=== PATIENT | female | born 1975 | race Caucasian/White ===

== ENCOUNTER 2023-06-26 10:32 | Emergency (ER) | payer OTHER ==
[2023-06-26] MEDS ORDERED: LACTATED RINGERS SOLUTION 1000 ML INFUS.BAG IV ONE (12:00)
[2023-06-26 13:09] LABS: BASO % 1.1 % (0-2.0); HEMATOCRIT 35.1 % (32.4-45.2); HEMOGLOBIN 11.1 GM/dL (10.7-15.3); LYMPH % 29.8 % (8-40); MCH 21.5 pg (25.7-33.7); MCHC 31.6 g/dl (32.0-36.0); MEAN CELL VOLUME 68.2 fl (80-96); MEAN PLT VOLUME 8.6 fl (7.5-11.1); MONO % 5.3 % (3.8-10.2); NEUT % 60.8 % (42.8-82.8); PLATELET COUNT 381 10^3/uL (134-434); RBC 5.14 M/mm3 (3.60-5.2); WHITE BLOOD COUNT 5.7 K/mm3 (4.0-10.0)
[2023-06-26 13:14] LABS: EPI CELLS >36 /uL (0-25.1); HYALINE CASTS 0 /uL (0-3.1); PH,URINE 7.5 (5.0-8.0); URINE APPEARANCE CLEAR; URINE BACTERIA 29 /uL (0-1359); URINE BILIRUBIN NEGATIVE (NEGATIVE); URINE COLOR YELLOW; URINE GLUCOSE (UA) NEGATIVE (NEGATIVE); URINE KETONE NEGATIVE (NEGATIVE); URINE LEUK ESTERASE 1+ (NEGATIVE); URINE NITRITE NEGATIVE (NEGATIVE); URINE PROTEIN NEGATIVE (NEGATIVE); URINE RBC 7 /uL (0-23.9); URINE UROBILINOGEN 0.2 mg/dL (0.2-1.0); URINE WBC 23 /uL (0-25.8)
[2023-06-26 13:15] LABS: INR 1.02 (0.83-1.09); PROTHROMBIN TIME (PATIENT) 11.8 SEC (9.7-13.0)
[2023-06-26 13:19] LABS: ACTIVATED PTT 34.1 SECONDS (25.2-36.5)
[2023-06-26] MEDS ORDERED: MECLIZINE HCL 25 MG TABLET (FP) PO ONE (13:30)
[2023-06-26] MEDS ORDERED: MECLIZINE HCL 25 MG TABLET (FP) ONE (13:31)
[2023-06-26 13:54] LABS: POTASSIUM 3.9 mmol/L (3.5-5.1)
[2023-06-26 13:56] LABS: ALBUMIN 3.9 g/dl (3.4-5.0); CALCIUM 9.5 mg/dL (8.5-10.1); MAGNESIUM 2.2 mg/dL (1.8-2.4)
[2023-06-26 13:59] LABS: CREATININE 0.7 mg/dL (0.55-1.3)
[2023-06-26 14:01] LABS: BILIRUBIN,TOTAL 0.3 mg/dL (0.2-1); TOT PROT 8.7 g/dl (6.4-8.2)
[2023-06-26 14:24] VITALS: RESP 18; BMI 29.8
[2023-06-26 14:32] LABS: ANISOCYTOSIS 2+; MACROCYTOSIS 0
[2023-06-26 15:15] VITALS: BP 130/85; PULSE 76; TEMP 97.5
== END 2023-06-26 15:26 | disposition home or self-care (01) ==
LOC: JER 10:32
DX: R55 Syncope and collapse (principal); R42 Dizziness and giddiness; W01.198A Fall on same level from slipping, tripping and stumbling with subsequent striking against other object, initial encounter; Z20.822 Contact with and (suspected) exposure to COVID-19
CPT/HCPCS: 0241U-QW; 36415; 70450-TC; 71045-TC-FY; 80053; 81003; 82962; 83735; 84484; 85025; 85610; 85730; 87086; 93005; 93010; 99285-25

== ENCOUNTER 2023-09-29 11:52 | Emergency (ER) | payer OTHER ==
[2023-09-29 12:14] VITALS: BP 154/76; PULSE 93; RESP 18; TEMP 98.3; BMI 23.4
[2023-09-29 14:32] LABS: BASO % 0.7 % (0-2.0); EOS % 3.1 % (0-4.5); HEMATOCRIT 34.5 % (32.4-45.2); HEMOGLOBIN 10.9 GM/dL (10.7-15.3); LYMPH % 36.2 % (8-40); MCH 23.7 pg (25.7-33.7); MCHC 31.7 g/dl (32.0-36.0); MEAN CELL VOLUME 74.8 fl (80-96); MONO % 7.3 % (3.8-10.2); NEUT % 52.7 % (42.8-82.8); PLATELET COUNT 414 10^3/uL (134-434); RBC 4.61 M/mm3 (3.60-5.2); RDW 18.8 % (11.6-15.6)
[2023-09-29 14:33] LABS: EPI CELLS >36 /uL (0-25.1); HYALINE CASTS 1 /uL (0-3.1); PH,URINE >= 9.0 (5.0-8.0); URINE APPEARANCE CLOUDY; URINE BACTERIA 2943 /uL (0-1359); URINE BILIRUBIN NEGATIVE (NEGATIVE); URINE COLOR YELLOW; URINE GLUCOSE (UA) NEGATIVE (NEGATIVE); URINE KETONE NEGATIVE (NEGATIVE); URINE LEUK ESTERASE TRACE (NEGATIVE); URINE NITRITE NEGATIVE (NEGATIVE); URINE PROTEIN TRACE (NEGATIVE); URINE RBC 7 /uL (0-23.9); URINE WBC 21 /uL (0-25.8)
[2023-09-29 14:50] LABS: HCG,QUALITATIVE URINE Negative
[2023-09-29 14:56] LABS: POTASSIUM 4.1 mmol/L (3.5-5.1)
[2023-09-29 14:57] LABS: CALCIUM 9.5 mg/dL (8.5-10.1)
[2023-09-29 14:58] LABS: ALBUMIN 3.7 g/dl (3.4-5.0); BLOOD UREA NITROGEN 9.6 mg/dL (7-18)
[2023-09-29 15:01] LABS: CREATININE 0.7 mg/dL (0.55-1.3)
[2023-09-29 15:03] LABS: BILIRUBIN,TOTAL 0.4 mg/dL (0.2-1); TOT PROT 7.9 g/dl (6.4-8.2)
== END 2023-09-29 15:38 | disposition home or self-care (01) ==
LOC: JER 11:52
DX: R42 Dizziness and giddiness (principal); R53.1 Weakness
CPT/HCPCS: 36415; 80053; 81003; 84484; 84703; 85025; 86850; 86900; 86901; 87086; 93005; 93010; 99284-25

== ENCOUNTER 2023-11-24 12:07 | Emergency (ER) | payer OTHER ==
[2023-11-24 12:18] VITALS: BP 150/79; PULSE 106; RESP 18; TEMP 98.4; BMI 26.6
[2023-11-24 13:38] LABS: BASO % 0.5 % (0-2.0); EOS % 1.8 % (0-4.5); HEMATOCRIT 33.1 % (32.4-45.2); HEMOGLOBIN 10.3 GM/dL (10.7-15.3); LYMPH % 23.8 % (8-40); MCHC 31.2 g/dl (32.0-36.0); MEAN CELL VOLUME 73.6 fl (80-96); MEAN PLT VOLUME 7.9 fl (7.5-11.1); MONO % 5.7 % (3.8-10.2); NEUT % 68.2 % (42.8-82.8); PLATELET COUNT 369 10^3/uL (134-434); RDW 19.5 % (11.6-15.6); WHITE BLOOD COUNT 5.9 K/mm3 (4.0-10.0)
[2023-11-24 13:59] LABS: POTASSIUM 4.2 mmol/L (3.5-5.1)
[2023-11-24 14:02] LABS: CALCIUM 9.3 mg/dL (8.5-10.1)
[2023-11-24 14:03] LABS: ALBUMIN 3.9 g/dl (3.4-5.0)
[2023-11-24 14:06] LABS: CREATININE 0.6 mg/dL (0.55-1.3)
[2023-11-24 14:07] LABS: BILIRUBIN,TOTAL 0.5 mg/dL (0.2-1); TOT PROT 8.1 g/dl (6.4-8.2)
[2023-11-24] MEDS ORDERED: CYCLOBENZAPRINE HCL 10 MG TABLET (FP) ONE (14:49)
[2023-11-24] MEDS: CYCLOBENZAPRINE HCL 10 MG TABLET (FP) PO ONE (14:51)
== END 2023-11-24 15:02 | disposition home or self-care (01) ==
LOC: JER 12:07
DX: R25.3 Fasciculation (principal)
CPT/HCPCS: 36415; 80053; 83735; 85025; 99283-25